=== PATIENT | male | born 1975 | race Caucasian/White ===

== ENCOUNTER 2022-08-11 11:47 | Outpatient (CLI) | payer OTHER, SELFPAY ==
--- NOTE | 2022-08-11 13:42 | W.ANESCHARGE ---
Anesthesia Charges Start Date/Time Anesthesia Start Date: 08/11/22 Anesthesia Start Time: 12:45 Stop Date/Time Anesthesia Stop Date: 08/11/22 Anesthesia Stop Time: 13:35 Summary Emergency: No
== END 2022-08-11 11:48 | disposition home or self-care (01) ==
LOC: OP CLINIC 11:48
PROVIDERS: PCP Internal Medicine; Visit Provider Surgery
DX: Z86.010 Personal history of colon polyps (principal); Z09 Encounter for follow-up examination after completed treatment for conditions other than malignant neoplasm
CPT/HCPCS: 00812; 45380; 88305; J2704